=== PATIENT | male | born 1960 | race Caucasian/White ===

== ENCOUNTER 2016-12-18 16:29 | Emergency (ER) | payer OTHER ==
[~2016-12-18] VITALS: Ht 177.8 cm; Wt 113.6 kg
[~2016-12-18 16:29] MED LIST: AUGMENTIN875 MG PO; CLINDAMYCIN HC300 MG PO; FLEXERIL10 MG PO; GLUCOTROL5 MG PO; LISINOPRIL5 MG PO; METFORMIN HCL500 M1 PO; METFORMIN HCL500 M4 PO; ONE TOUCH VERI1 EACH MC; PERCOCET 5/31 TABLET PO
[2016-12-18] MEDS ORDERED: DILAUDID4 MG PO (19:37)
[2016-12-18 20:25] VITALS: BP 120/85
== END 2016-12-18 23:05 | disposition home or self-care (01) ==
LOC: EME 16:29
DX: M54.9 Dorsalgia, unspecified (principal); S22.009S Unspecified fracture of unspecified thoracic vertebra, sequela; I10 Essential (primary) hypertension; E11.40 Type 2 diabetes mellitus with diabetic neuropathy, unspecified
CPT/HCPCS: 72070; 99281; 99284; J2270

== ENCOUNTER 2016-12-21 14:26 | Inpatient (IN) | payer OTHER ==
[~2016-12-21] VITALS: Ht 177.8 cm; Wt 106.9 kg
[~2016-12-21 14:26] MED LIST changes: +DILAUDID4 MG PO
[2016-12-21 15:10] LABS: HEMATOCRIT 27.7 % (38.0-50.0); MCH 24.2 PG (29.0-34.0); MCHC 31.4 G/DL (30.0-36.0); MCV 76.9 FL (86-99); MEAN PLAT.VOLUME 8.6 uM^3 (9.0-12.4); PLATELET COUNT 392 K/uL (156-360); RBC DIS.WIDTH-CV 14.6 % (11.8-14.6); RBC DIS.WIDTH-SD 40.1 % (39-53); WHITE BLOOD COUNT 9.8 K/uL (4.1-10.2)
[2016-12-21 15:17] LABS: CHLORIDE 106 mEq/L (99-109); POTASSIUM 3.7 mEq/L (3.7-5.4); SODIUM 137 mEq/L (136-147)
[2016-12-21 15:19] LABS: GLUCOSE 117 mg/dL (70-99)
[2016-12-21 15:21] LABS: ANION GAP 10 MEQ/L (2-14)
[2016-12-21 15:23] LABS: GFR ESTIMATE (CALCULATED) > 59 mL/min/
[2016-12-21 15:24] LABS: UREA NITROGEN (BUN) 20 mg/dL (9-23)
[2016-12-21 15:32] LABS: TROP-I INTERPRETATION NEGATIVE; TROPONIN-I < 0.01 ng/mL (0.0-0.30)
[2016-12-21 16:25] LABS: ADD MIUA? YES; BILIRUBIN NEGATIVE; BLOOD NEGATIVE; COLOR YELLOW ((YELLOW)); GLUCOSE (STRIP) NEGATIVE; KETONES NEGATIVE; LEUKOCYTES SMALL; NITRITE NEGATIVE; PROTEIN (STRIP) 30; UROBILINOGEN 0.2 MG/DL (0.2-1.0)
[2016-12-21 16:51] LABS: BACTERIA 2+ /HPF; EPITHELIAL CELLS 1+ /HPF; MUCUS NONE SEEN /LPF; RED BLOOD CELLS 0-5 /HPF (0-5); UCUL ADDED? YES; WHITE BLOOD CELLS 15-20 /HPF (0-5)
[2016-12-21] MEDS ORDERED: LISINOPRIL10 MG PO (17:56)
[2016-12-21] MEDS ORDERED: PERCOCET 5/31 TABLET PO (17:57)
[2016-12-21] MEDS ORDERED: LITE COAT ASPI325 M1 PO (17:57)
[2016-12-21] MEDS ORDERED: HUMALOG100 UNIT/1 SC (17:57)
[2016-12-21] MEDS ORDERED: LANTUS 3 M100 UNITS1 SC (17:57)
[2016-12-21] MEDS ORDERED: DOXYCYCLINE HY100 MG PO (17:57)
[2016-12-21 20:32] VITALS: BP 141/70
[2016-12-21 21:11] LABS: POINT-OF-CARE METER ID UU14188577
[2016-12-21 23:12] VITALS: BP 131/62
[2016-12-21 23:54] LABS: METH RESISTANT S AUREUS PCR NEGATIVE (NEGATIVE)
[2016-12-21 23:57] LABS: PROBE CHECK PASS; SPECIMEN PROCESSING CONTROL PASS
[2016-12-22 03:56] VITALS: BP 121/69
[2016-12-22 05:03] LABS: HEMATOCRIT 26.2 % (38.0-50.0); MCH 23.9 PG (29.0-34.0); MCHC 30.5 G/DL (30.0-36.0); MCV 78.2 FL (86-99); MEAN PLAT.VOLUME 9.1 uM^3 (9.0-12.4); PLATELET COUNT 374 K/uL (156-360); RBC DIS.WIDTH-CV 15.1 % (11.8-14.6); RBC DIS.WIDTH-SD 41.8 % (39-53); RED BLOOD COUNT 3.35 M/uL (4.00-5.50); WHITE BLOOD COUNT 10.6 K/uL (4.1-10.2)
[2016-12-22 05:20] LABS: CHLORIDE 105 mEq/L (99-109); POTASSIUM 3.9 mEq/L (3.7-5.4); SODIUM 136 mEq/L (136-147)
[2016-12-22 05:22] LABS: GLUCOSE 88 mg/dL (70-99)
[2016-12-22 05:23] LABS: ANION GAP 8 MEQ/L (2-14)
[2016-12-22 05:26] LABS: GFR ESTIMATE (CALCULATED) > 59 mL/min/; UREA NITROGEN (BUN) 21 mg/dL (9-23)
[2016-12-22 06:28] LABS: POINT-OF-CARE METER ID UU14188577
[2016-12-22 06:52] LABS: IRON 28 MCG/DL (35-150)
[2016-12-22 08:41] VITALS: BP 144/70
[2016-12-22 10:42] VITALS: BP 135/94
[2016-12-22 14:08] LABS: POINT-OF-CARE METER ID UU14149397
[2016-12-22 17:55] LABS: POINT-OF-CARE METER ID UU14149397
[2016-12-22 17:57] VITALS: BP 111/64
[2016-12-22 20:00] VITALS: BP 107/59
[2016-12-22 22:16] LABS: POINT-OF-CARE METER ID UU14188577
[2016-12-23 00:07] VITALS: BP 128/76
[2016-12-23 03:57] VITALS: BP 153/77
[2016-12-23 04:50] LABS: BASOPHIL COUNT 0.1 K/uL (0-0.1); EOSINOPHIL (%) 3.3 % (0-5); EOSINOPHIL COUNT 0.3 K/uL (0-0.3); HEMATOCRIT 26.6 % (38.0-50.0); IMMATURE GRANULOCYTE (%) 0.4 % (0.0-0.7); INSTRUMENT ABS NEUTROPHIL CT 5.5 K/uL; LYMPHOCYTE COUNT 3.1 K/uL (1.0-2.8); MCHC 30.5 G/DL (30.0-36.0); MCV 78.9 FL (86-99); MEAN PLAT.VOLUME 9.2 uM^3 (9.0-12.4); MONOCYTE (%) 9.2 % (3-12); MONOCYTE COUNT 0.9 K/uL (0-0.8); NEUTROPHIL COUNT 5.5 K/uL (1.8-6.4); PLATELET COUNT 350 K/uL (156-360); RBC DIS.WIDTH-CV 15.4 % (11.8-14.6); RBC DIS.WIDTH-SD 43.6 % (39-53); RED BLOOD COUNT 3.37 M/uL (4.00-5.50); WHITE BLOOD COUNT 9.9 K/uL (4.1-10.2)
[2016-12-23 05:19] LABS: CHLORIDE 106 mEq/L (99-109); SODIUM 137 mEq/L (136-147)
[2016-12-23 05:21] LABS: GLUCOSE 107 mg/dL (70-99)
[2016-12-23 05:23] LABS: ANION GAP 7 MEQ/L (2-14); TOTAL BILIRUBIN 0.2 mg/dL (0.0-1.0)
[2016-12-23 05:25] LABS: ALKALINE PHOSPHATASE 57 IU/L (3-129); GFR ESTIMATE (CALCULATED) > 59 mL/min/
[2016-12-23 05:26] LABS: UREA NITROGEN (BUN) 19 mg/dL (9-23)
[2016-12-23 07:57] VITALS: BP 142/79
[2016-12-23 11:26] LABS: POINT-OF-CARE METER ID UU14188577
[2016-12-23 11:49] VITALS: BP 98/61
[2016-12-23 15:00] VITALS: BP 110/57
[2016-12-23 16:23] LABS: POINT-OF-CARE METER ID UU14188577
[2016-12-23 19:35] VITALS: BP 134/70
[2016-12-24] VITALS (7 sets, daily range): BP systolic 108–152; BP diastolic 59–79
[2016-12-24 05:48] LABS: HEMATOCRIT 27.3 % (38.0-50.0); MCH 24.1 PG (29.0-34.0); MCHC 30.4 G/DL (30.0-36.0); MCV 79.4 FL (86-99); MEAN PLAT.VOLUME 9.2 uM^3 (9.0-12.4); PLATELET COUNT 336 K/uL (156-360); RBC DIS.WIDTH-CV 15.5 % (11.8-14.6); RBC DIS.WIDTH-SD 43.9 % (39-53); RED BLOOD COUNT 3.44 M/uL (4.00-5.50); WHITE BLOOD COUNT 9.7 K/uL (4.1-10.2)
[2016-12-24 06:13] LABS: ANION GAP 5 MEQ/L (2-14); CHLORIDE 102 MEQ/L (99-109); GFR ESTIMATE (CALCULATED) > 59 mL/min/; GLUCOSE 97 mg/dL (70-99); SAMPLE HEMOLYSIS CHECK 0; SAMPLE ICTERIC CHECK 0; SAMPLE LIPEMIA CHECK 0; SODIUM 134 MEQ/L (136-147); UREA NITROGEN (BUN) 24 mg/dL (9-23)
[2016-12-24 06:38] LABS: POINT-OF-CARE METER ID UU14188577
[2016-12-24 11:30] LABS: POINT-OF-CARE METER ID UU14188577
[2016-12-25 05:34] VITALS: BP 121/76
[2016-12-25 06:25] LABS: POINT-OF-CARE METER ID UU14188577
[2016-12-25 07:21] VITALS: BP 131/75
[2016-12-25 09:01] LABS: MCH 24.3 PG (29.0-34.0); MCHC 30.7 G/DL (30.0-36.0); MCV 79.2 FL (86-99); MEAN PLAT.VOLUME 8.9 uM^3 (9.0-12.4); PLATELET COUNT 354 K/uL (156-360); RBC DIS.WIDTH-CV 15.5 % (11.8-14.6); RBC DIS.WIDTH-SD 43.9 % (39-53); RED BLOOD COUNT 3.66 M/uL (4.00-5.50); WHITE BLOOD COUNT 7.9 K/uL (4.1-10.2)
[2016-12-25 11:31] VITALS: BP 129/68
[2016-12-25 16:09] VITALS: BP 111/70
[2016-12-25 20:29] VITALS: BP 110/60
[2016-12-25 21:33] LABS: POINT-OF-CARE METER ID UU14188577
[2016-12-25 23:51] VITALS: BP 105/55
[2016-12-26 05:25] LABS: HEMATOCRIT 28.7 % (38.0-50.0); MCH 24.3 PG (29.0-34.0); MCHC 30.3 G/DL (30.0-36.0); MCV 80.2 FL (86-99); MEAN PLAT.VOLUME 9.3 uM^3 (9.0-12.4); PLATELET COUNT 326 K/uL (156-360); RBC DIS.WIDTH-CV 15.8 % (11.8-14.6); RED BLOOD COUNT 3.58 M/uL (4.00-5.50); WHITE BLOOD COUNT 8.8 K/uL (4.1-10.2)
[2016-12-26 05:54] LABS: ANION GAP 7 MEQ/L (2-14); CHLORIDE 103 MEQ/L (99-109); GFR ESTIMATE (CALCULATED) > 59 mL/min/; GLUCOSE 101 mg/dL (70-99); MAGNESIUM 2.1 mg/dl (1.3-2.7); POTASSIUM 4.5 MEQ/L (3.7-5.4); SAMPLE HEMOLYSIS CHECK 0; SAMPLE ICTERIC CHECK 0; SAMPLE LIPEMIA CHECK 0; SODIUM 136 MEQ/L (136-147); UREA NITROGEN (BUN) 34 mg/dL (9-23)
[2016-12-26 08:29] VITALS: BP 118/67
[2016-12-26 11:31] VITALS: BP 77/43
[2016-12-26 15:19] VITALS: BP 119/66
[2016-12-26 23:33] VITALS: BP 115/62
[2016-12-27 05:58] LABS: BASOPHIL COUNT 0.1 K/uL (0-0.1); EOSINOPHIL (%) 5.1 % (0-5); EOSINOPHIL COUNT 0.5 K/uL (0-0.3); HEMATOCRIT 27.8 % (38.0-50.0); IMMATURE GRANULOCYTE (%) 0.4 % (0.0-0.7); INSTRUMENT ABS NEUTROPHIL CT 5.4 K/uL; LYMPHOCYTE COUNT 3.3 K/uL (1.0-2.8); MCH 24.8 PG (29.0-34.0); MCHC 30.9 G/DL (30.0-36.0); MCV 80.1 FL (86-99); MEAN PLAT.VOLUME 9.4 uM^3 (9.0-12.4); MONOCYTE (%) 7.5 % (3-12); MONOCYTE COUNT 0.8 K/uL (0-0.8); NEUTROPHIL (%) 53.6 % (45-76); NEUTROPHIL COUNT 5.4 K/uL (1.8-6.4); PLATELET COUNT 314 K/uL (156-360); RBC DIS.WIDTH-CV 16.2 % (11.8-14.6); RBC DIS.WIDTH-SD 46.2 % (39-53); RED BLOOD COUNT 3.47 M/uL (4.00-5.50)
[2016-12-27 06:35] LABS: ALKALINE PHOSPHATASE 56 IU/L (3-129); ANION GAP 8 MEQ/L (2-14); CHLORIDE 103 MEQ/L (99-109); GFR ESTIMATE (CALCULATED) > 59 mL/min/; GLUCOSE 114 mg/dL (70-99); POTASSIUM 4.8 MEQ/L (3.7-5.4); SAMPLE HEMOLYSIS CHECK 0; SAMPLE ICTERIC CHECK 0; SAMPLE LIPEMIA CHECK 0; SODIUM 136 MEQ/L (136-147); TOTAL BILIRUBIN 0.2 MG/DL (0.0-1.0); UREA NITROGEN (BUN) 51 mg/dL (9-23)
[2016-12-27 08:23] VITALS: BP 105/55
[2016-12-27 12:23] LABS: POINT-OF-CARE METER ID UU14149397
[2016-12-27] MEDS ORDERED: HEPARIN SO5000 UNITS SC (12:23)
[2016-12-27] MEDS ORDERED: FERROUS SULFAT325 MG PO (12:23)
[2016-12-27] MEDS ORDERED: BISACODYL5 MG PO (12:24)
[2016-12-27] MEDS ORDERED: GABAPENTIN300 MG PO (12:24)
[2016-12-27] MEDS ORDERED: DOCUSATE SODIU100 MG PO (12:24)
[2016-12-27] MEDS ORDERED: CYANOCOBALAM1000 MCG PO (12:24)
[2016-12-27] MEDS ORDERED: OXYCODONE-APAP1 EACH PO (12:25)
[2016-12-27] MEDS ORDERED: MORPHINE SULFAT15 M1 PO (12:25)
[2016-12-27] MEDS ORDERED: CYCLOBENZAPRINE5 MG PO (12:25)
[2016-12-27] MEDS ORDERED: VANCOMYCIN1 GM/150 M IV (12:29)
[2016-12-27 15:01] VITALS: BP 113/65
[2016-12-27 16:09] VITALS: BP 110/68
[2016-12-27 19:41] VITALS: BP 121/72
[2016-12-27 21:37] LABS: POINT-OF-CARE METER ID UU14149397
[2016-12-28 00:17] VITALS: BP 127/73
[2016-12-28 06:27] LABS: BASOPHIL COUNT 0.1 K/uL (0-0.1); EOSINOPHIL (%) 5.3 % (0-5); EOSINOPHIL COUNT 0.5 K/uL (0-0.3); HEMATOCRIT 28.5 % (38.0-50.0); IMMATURE GRANULOCYTE (%) 0.3 % (0.0-0.7); INSTRUMENT ABS NEUTROPHIL CT 4.4 K/uL; LYMPHOCYTE COUNT 3.4 K/uL (1.0-2.8); MCH 24.9 PG (29.0-34.0); MCHC 30.5 G/DL (30.0-36.0); MCV 81.7 FL (86-99); MONOCYTE (%) 7.1 % (3-12); MONOCYTE COUNT 0.6 K/uL (0-0.8); NEUTROPHIL (%) 48.9 % (45-76); NEUTROPHIL COUNT 4.4 K/uL (1.8-6.4); PLATELET COUNT 323 K/uL (156-360); RBC DIS.WIDTH-CV 16.4 % (11.8-14.6); RBC DIS.WIDTH-SD 48.5 % (39-53); RED BLOOD COUNT 3.49 M/uL (4.00-5.50); WHITE BLOOD COUNT 8.9 K/uL (4.1-10.2)
[2016-12-28 07:02] LABS: POINT-OF-CARE METER ID UU14149397
[2016-12-28 07:08] LABS: ALKALINE PHOSPHATASE 56 IU/L (3-129); ANION GAP 5 MEQ/L (2-14); CHLORIDE 101 MEQ/L (99-109); GFR ESTIMATE (CALCULATED) > 59 mL/min/; GLUCOSE 88 mg/dL (70-99); SAMPLE HEMOLYSIS CHECK 0; SAMPLE ICTERIC CHECK 0; SAMPLE LIPEMIA CHECK 0; SODIUM 134 MEQ/L (136-147); TOTAL BILIRUBIN 0.2 MG/DL (0.0-1.0); UREA NITROGEN (BUN) 45 mg/dL (9-23); VANCOMYCIN, TROUGH 13.1 MCG/ML (10-20)
[2016-12-28 12:00] LABS: POINT-OF-CARE METER ID UU14149397
== END 2016-12-28 14:39 | DRG 540 ==
LOC: EME 14:26 → EDOF 18:48 → 3EAST 18:48
PROVIDERS: Emergency Medicine; Hospitalist; Internal Medicine
DX: M46.34 Infection of intervertebral disc (pyogenic), thoracic region (principal); E11.42 Type 2 diabetes mellitus with diabetic polyneuropathy; E11.65 Type 2 diabetes mellitus with hyperglycemia; E11.621 Type 2 diabetes mellitus with foot ulcer; E66.01 Morbid (severe) obesity due to excess calories; L03.116 Cellulitis of left lower limb; M46.24 Osteomyelitis of vertebra, thoracic region; N39.0 Urinary tract infection, site not specified; Z86.14 Personal history of Methicillin resistant Staphylococcus aureus infection; D50.9 Iron deficiency anemia, unspecified; E11.610 Type 2 diabetes mellitus with diabetic neuropathic arthropathy; L97.421 Non-pressure chronic ulcer of left heel and midfoot limited to breakdown of skin; L97.521 Non-pressure chronic ulcer of other part of left foot limited to breakdown of skin; Z79.4 Long term (current) use of insulin; M54.14 Radiculopathy, thoracic region; I10 Essential (primary) hypertension; G89.29 Other chronic pain; M54.9 Dorsalgia, unspecified; B95.62 Methicillin resistant Staphylococcus aureus infection as the cause of diseases classified elsewhere; E78.5 Hyperlipidemia, unspecified; D47.3 Essential (hemorrhagic) thrombocythemia; L02.612 Cutaneous abscess of left foot; S22.079D Unspecified fracture of T9-T10 vertebra, subsequent encounter for fracture with routine healing; W19.XXXD Unspecified fall, subsequent encounter; R15.9 Full incontinence of feces; G95.29 Other cord compression; Z87.891 Personal history of nicotine dependence; Z99.3 Dependence on wheelchair; M86.672 Other chronic osteomyelitis, left ankle and foot; E11.69 Type 2 diabetes mellitus with other specified complication; Z68.33 Body mass index [BMI] 33.0-33.9, adult; Z79.2 Long term (current) use of antibiotics
CPT/HCPCS: 72128; 72157; 76937; 80048; 80053; 80202; 81003; 82272; 82565; 82607; 82948; 83540; 83735; 84466; 84484; 85025; 85027; 85651; 86140; 87040; 87086; 87641; 93005; 93306; 93971; 97530 GP; 99281; 99285; A6260; G0378; J0696; J1170; J1644; J1815; J2270; J2405; J3370; J7030; J7050

== ENCOUNTER 2017-03-19 10:42 | Emergency (ER) | payer OTHER ==
[~2017-03-19] VITALS: Ht 180.3 cm; Wt 128.1 kg
[~2017-03-19 10:42] MED LIST changes: +BISACODYL5 MG PO; +CYANOCOBALAM1000 MCG PO; +CYCLOBENZAPRINE5 MG PO; +DOCUSATE SODIU100 MG PO; +DOXYCYCLINE HY100 MG PO; +FERROUS SULFAT325 MG PO; +GABAPENTIN300 MG PO; +HEPARIN SO5000 UNITS SC; +HUMALOG100 UNIT/1 SC; +LANTUS 3 M100 UNITS1 SC; +LISINOPRIL10 MG PO; +LITE COAT ASPI325 M1 PO; +MORPHINE SULFAT15 M1 PO; +OXYCODONE-APAP1 EACH PO; +VANCOMYCIN1 GM/150 M IV
[2017-03-19 13:49] VITALS: BP 127/72
== END 2017-03-19 13:53 | disposition home or self-care (01) ==
LOC: EME 10:42
DX: M25.561 Pain in right knee (principal); M25.511 Pain in right shoulder; G89.29 Other chronic pain; I10 Essential (primary) hypertension; E11.9 Type 2 diabetes mellitus without complications; Z79.4 Long term (current) use of insulin; Z79.82 Long term (current) use of aspirin; Z86.14 Personal history of Methicillin resistant Staphylococcus aureus infection
CPT/HCPCS: 73030; 73564; 99281; 99284

== ENCOUNTER 2017-04-07 22:07 | Inpatient (IN) | payer OTHER ==
[~2017-04-07] VITALS: Ht 180.3 cm; Wt 128.1 kg
[~2017-04-07 22:07] MED LIST changes: -HUMALOG100 UNIT/1 SC; +HUMALOG100 UNIT/2 SC
[2017-04-07 23:19] LABS: BASOPHIL COUNT 0.1 K/uL (0-0.1); EOSINOPHIL (%) 1.4 % (0-5); EOSINOPHIL COUNT 0.2 K/uL (0-0.3); HEMATOCRIT 34.5 % (38.0-50.0); IMMATURE GRANULOCYTE (%) 0.4 % (0.0-0.7); IMMATURE GRANULOCYTE COUNT 0.1 K/uL; INSTRUMENT ABS NEUTROPHIL CT 8.9 K/uL; LYMPHOCYTE COUNT 2.6 K/uL (1.0-2.8); MCH 29.1 PG (29.0-34.0); MCHC 32.5 G/DL (30.0-36.0); MCV 89.6 FL (86-99); MEAN PLAT.VOLUME 9.6 uM^3 (9.0-12.4); MONOCYTE (%) 11.1 % (3-12); MONOCYTE COUNT 1.5 K/uL (0-0.8); NEUTROPHIL (%) 67.1 % (45-76); NEUTROPHIL COUNT 8.9 K/uL (1.8-6.4); PLATELET COUNT 185 K/uL (156-360); RBC DIS.WIDTH-CV 12.4 % (11.8-14.6); RED BLOOD COUNT 3.85 M/uL (4.00-5.50); WHITE BLOOD COUNT 13.2 K/uL (4.1-10.2)
[2017-04-07 23:28] LABS: CHLORIDE 107 mEq/L (99-109); POTASSIUM 4.8 mEq/L (3.7-5.4); SODIUM 139 mEq/L (136-147)
[2017-04-07 23:29] LABS: MAGNESIUM 1.8 mg/dL (1.3-2.7)
[2017-04-07 23:30] LABS: GLUCOSE 160 mg/dL (70-99)
[2017-04-07 23:31] LABS: ANION GAP 10 MEQ/L (2-14)
[2017-04-07 23:32] LABS: TOTAL BILIRUBIN 0.3 mg/dL (0.0-1.0)
[2017-04-07 23:34] LABS: ALKALINE PHOSPHATASE 60 IU/L (3-129); GFR ESTIMATE (CALCULATED) > 59 mL/min/
[2017-04-07 23:35] LABS: UREA NITROGEN (BUN) 31 mg/dL (9-23)
[2017-04-07] MEDS ORDERED: IRON325 M1 PO (23:59)
[2017-04-08] MEDS ORDERED: ONE-A-DAY ESSE1 EAC1 PO
[2017-04-08] MEDS ORDERED: SENNA PLUS TAB1 EACH PO (00:01)
[2017-04-08] MEDS ORDERED: KEFLEX500 MG PO (00:02)
[2017-04-08] MEDS ORDERED: BENADRYL25 MG PO (00:03)
[2017-04-08] MEDS ORDERED: DULCOLAX5 MG PO (00:03)
[2017-04-08] MEDS ORDERED: GLUCOSE GEL38 GM PO (00:04)
[2017-04-08] MEDS ORDERED: TYLENOL REGULA325 MG PO (00:05)
[2017-04-08] MEDS ORDERED: PERCOCET 10/1 TABLET PO (00:05)
[2017-04-08 04:17] VITALS: BP 117/58
[2017-04-08 06:34] LABS: HEMATOCRIT 33.3 % (38.0-50.0); MCH 28.8 PG (29.0-34.0); MCHC 31.5 G/DL (30.0-36.0); MCV 91.5 FL (86-99); MEAN PLAT.VOLUME 9.8 uM^3 (9.0-12.4); PLATELET COUNT 151 K/uL (156-360); RBC DIS.WIDTH-CV 12.7 % (11.8-14.6); RBC DIS.WIDTH-SD 42.4 % (39-53); RED BLOOD COUNT 3.64 M/uL (4.00-5.50); WHITE BLOOD COUNT 11.8 K/uL (4.1-10.2)
[2017-04-08 06:58] LABS: ALKALINE PHOSPHATASE 50 IU/L (3-129); ANION GAP 6 MEQ/L (2-14); CHLORIDE 109 MEQ/L (99-109); GFR ESTIMATE (CALCULATED) > 59 mL/min/; GLUCOSE 124 mg/dL (70-99); POTASSIUM 4.8 MEQ/L (3.7-5.4); SAMPLE HEMOLYSIS CHECK 0; SAMPLE ICTERIC CHECK 0; SAMPLE LIPEMIA CHECK 0; SODIUM 138 MEQ/L (136-147); TOTAL BILIRUBIN 0.4 MG/DL (0.0-1.0); UREA NITROGEN (BUN) 33 mg/dL (9-23)
[2017-04-08 07:25] LABS: POINT-OF-CARE METER ID UU14117124
[2017-04-08 07:39] LABS: ERTH.SED.RATE 49 MM/HR (0-20)
[2017-04-08 08:10] VITALS: BP 120/74
[2017-04-08 08:43] LABS: METH RESISTANT S AUREUS PCR NEGATIVE (NEGATIVE)
[2017-04-08 08:46] LABS: PROBE CHECK PASS; SPECIMEN PROCESSING CONTROL PASS
[2017-04-08 10:56] VITALS: BP 139/68
[2017-04-08 11:23] LABS: POINT-OF-CARE METER ID UU14117124
[2017-04-08 16:20] VITALS: BP 117/57
[2017-04-08 19:16] VITALS: BP 134/71
[2017-04-08 21:26] LABS: POINT-OF-CARE METER ID UU14208753
[2017-04-08 23:35] VITALS: BP 148/81
[2017-04-09 03:32] VITALS: BP 144/86
[2017-04-09 06:43] LABS: BASOPHIL COUNT 0.1 K/uL (0-0.1); EOSINOPHIL COUNT 0.2 K/uL (0-0.3); IMMATURE GRANULOCYTE (%) 0.4 % (0.0-0.7); LYMPHOCYTE COUNT 2.1 K/uL (1.0-2.8); MCH 28.7 PG (29.0-34.0); MCHC 32.4 G/DL (30.0-36.0); MCV 88.8 FL (86-99); MEAN PLAT.VOLUME 10.1 uM^3 (9.0-12.4); MONOCYTE (%) 10.6 % (3-12); MONOCYTE COUNT 1.1 K/uL (0-0.8); NEUTROPHIL (%) 66.6 % (45-76); PLATELET COUNT 181 K/uL (156-360); RBC DIS.WIDTH-CV 12.1 % (11.8-14.6); RBC DIS.WIDTH-SD 39.6 % (39-53); RED BLOOD COUNT 3.83 M/uL (4.00-5.50); WHITE BLOOD COUNT 10.5 K/uL (4.1-10.2)
[2017-04-09 07:08] VITALS: BP 139/71
[2017-04-09 07:13] LABS: ANION GAP 10 MEQ/L (2-14); CHLORIDE 105 MEQ/L (99-109); GFR ESTIMATE (CALCULATED) > 59 mL/min/; GLUCOSE 90 mg/dL (70-99); POTASSIUM 4.7 MEQ/L (3.7-5.4); SAMPLE HEMOLYSIS CHECK 0; SAMPLE ICTERIC CHECK 0; SAMPLE LIPEMIA CHECK 0; SODIUM 138 MEQ/L (136-147); UREA NITROGEN (BUN) 22 mg/dL (9-23)
[2017-04-09 11:20] VITALS: BP 156/75
[2017-04-09 15:16] VITALS: BP 138/71
[2017-04-10 00:01] VITALS: BP 151/75
[2017-04-10 06:30] LABS: POINT-OF-CARE METER ID UU14188577
[2017-04-10 07:20] VITALS: BP 146/74
[2017-04-10] MEDS ORDERED: PERCOCET 10/1 TABLET PO (10:38)
[2017-04-10] MEDS ORDERED: MORPHINE SULFAT15 M1 PO (10:38)
[2017-04-10 10:58] LABS: POINT-OF-CARE METER ID UU14188577
[2017-04-10 11:15] VITALS: BP 134/69
[2017-04-10 15:16] VITALS: BP 136/68
[2017-04-10] MEDS ORDERED: VANCOMYCIN1 GM/150 M IV (15:21)
[2017-04-10 16:09] LABS: POINT-OF-CARE METER ID UU14117124
== END 2017-04-10 17:05 | DRG 539 ==
LOC: EME → EDBD 22:07 → EDOF 04-08 01:42 → 3EAST 04-08 01:42 → ENRESERV 04-08 01:47 → 3EAST 04-08 03:24
PROVIDERS: Emergency Medicine; Internal Medicine
DX: M86.10 Other acute osteomyelitis, unspecified site (principal); J69.0 Pneumonitis due to inhalation of food and vomit; L03.116 Cellulitis of left lower limb; N20.0 Calculus of kidney; M46.24 Osteomyelitis of vertebra, thoracic region; M46.40 Discitis, unspecified, site unspecified; G89.29 Other chronic pain; E78.5 Hyperlipidemia, unspecified; E11.65 Type 2 diabetes mellitus with hyperglycemia; I10 Essential (primary) hypertension; E11.610 Type 2 diabetes mellitus with diabetic neuropathic arthropathy; E11.69 Type 2 diabetes mellitus with other specified complication; M21.969 Unspecified acquired deformity of unspecified lower leg; B95.62 Methicillin resistant Staphylococcus aureus infection as the cause of diseases classified elsewhere; Z86.14 Personal history of Methicillin resistant Staphylococcus aureus infection; Z83.3 Family history of diabetes mellitus; Z79.4 Long term (current) use of insulin
CPT/HCPCS: 71020; 72128; 73630; 73700; 76937; 80048; 80053; 80202; 81003; 82948; 83605; 83735; 85025; 85027; 85651; 86140; 87040; 87641; 99281; 99285; J1644; J1815; J2543; J3370; J7030; J7050

== ENCOUNTER 2017-05-17 09:19 | Inpatient (IN) | payer OTHER ==
[~2017-05-17] VITALS: Ht 170.2 cm; Wt 138.7 kg
[~2017-05-17 09:19] MED LIST changes: +BENADRYL25 MG PO; +DULCOLAX10 MG PR; +GLUCOSE GEL38 GM PO; +IRON325 M1 PO; +KEFLEX500 MG PO; +ONE-A-DAY ESSE1 EAC1 PO; +PERCOCET 10/1 TABLET PO; +SENNA PLUS TAB1 EACH PO; +TYLENOL REGULA325 MG PO
[2017-05-17 10:10] LABS: EOSINOPHIL (%) 0.3 % (0-5); IMMATURE GRANULOCYTE (%) 0.5 % (0.0-0.7); IMMATURE GRANULOCYTE COUNT 0.1 K/uL; INSTRUMENT ABS NEUTROPHIL CT 11.6 K/uL; LYMPHOCYTE COUNT 0.4 K/uL (1.0-2.8); MCH 28.9 PG (29.0-34.0); MCHC 32.1 G/DL (30.0-36.0); MEAN PLAT.VOLUME 9.7 uM^3 (9.0-12.4); MONOCYTE COUNT 0.6 K/uL (0-0.8); NEUTROPHIL (%) 91.2 % (45-76); NEUTROPHIL COUNT 11.6 K/uL (1.8-6.4); PLATELET COUNT 176 K/uL (156-360); RBC DIS.WIDTH-CV 12.9 % (11.8-14.6); RBC DIS.WIDTH-SD 42.5 % (39-53); RED BLOOD COUNT 4.22 M/uL (4.00-5.50); WHITE BLOOD COUNT 12.7 K/uL (4.1-10.2)
[2017-05-17 10:18] LABS: CHLORIDE 110 mEq/L (99-109); SODIUM 136 mEq/L (136-147)
[2017-05-17 10:21] LABS: GLUCOSE 155 mg/dL (70-99)
[2017-05-17 10:22] LABS: ANION GAP 7 MEQ/L (2-14)
[2017-05-17 10:23] LABS: POTASSIUM 6.7 mEq/L (3.7-5.4); TOTAL BILIRUBIN 0.5 mg/dL (0.0-1.0)
[2017-05-17 10:24] LABS: ALKALINE PHOSPHATASE 79 IU/L (3-129); GFR ESTIMATE (CALCULATED) 37 mL/min/
[2017-05-17 10:25] LABS: UREA NITROGEN (BUN) 51 mg/dL (9-23)
[2017-05-17] MEDS ORDERED: GLUCOSAMINE CH1 EAC6 PO (11:52)
[2017-05-17] MEDS ORDERED: MIRALAX17 GM PO (11:55)
[2017-05-17] MEDS ORDERED: PROBIOTIC250 MG PO (12:00)
[2017-05-17] MEDS ORDERED: FLEET ENEMA-AD118 ML PR (12:08)
[2017-05-17] MEDS ORDERED: BISACODYL5 MG PO (12:10)
[2017-05-17] MEDS ORDERED: GLUCOSE GEL38 GM PO (12:12)
[2017-05-17] MEDS ORDERED: KALEXATE15 GM PO (12:14)
[2017-05-17 12:40] LABS: VANCOMYCIN, TROUGH 16.2 MCG/ML (10-20)
[2017-05-17 13:42] LABS: ADD MIUA? YES; BILIRUBIN NEGATIVE; BLOOD MODERATE; COLOR YELLOW ((YELLOW)); GLUCOSE (STRIP) NEGATIVE; KETONES NEGATIVE; LEUKOCYTES MODERATE; NITRITE NEGATIVE; PROTEIN (STRIP) 30; SPECIFIC GRAVITY 1.017 (1.000-1.030); UROBILINOGEN 0.2 MG/DL (0.2-1.0)
[2017-05-17 13:45] LABS: BACTERIA RARE /HPF; EPITHELIAL CELLS NONE SEEN /HPF; MUCUS NONE SEEN /LPF; UCUL ADDED? YES; WHITE BLOOD CELLS TNTC /HPF (0-5)
[2017-05-17 15:34] VITALS: BP 190/78
[2017-05-17 16:15] LABS: POINT-OF-CARE METER ID UU13113698
[2017-05-17 17:18] LABS: ANION GAP 7 MEQ/L (2-14); CHLORIDE 111 MEQ/L (99-109); GFR ESTIMATE (CALCULATED) 42 mL/min/; GLUCOSE 147 mg/dL (70-99); POTASSIUM 5.4 MEQ/L (3.7-5.4); SAMPLE HEMOLYSIS CHECK 0; SAMPLE ICTERIC CHECK 0; SAMPLE LIPEMIA CHECK 0; SODIUM 137 MEQ/L (136-147); UREA NITROGEN (BUN) 45 mg/dL (9-23)
[2017-05-17 19:58] VITALS: BP 115/54
[2017-05-17 20:04] LABS: ANION GAP 8 MEQ/L (2-14); CHLORIDE 113 MEQ/L (99-109); POTASSIUM 4.5 MEQ/L (3.7-5.4); SAMPLE HEMOLYSIS CHECK 0; SAMPLE ICTERIC CHECK 0; SAMPLE LIPEMIA CHECK 0; SODIUM 138 MEQ/L (136-147)
[2017-05-17 20:10] LABS: GFR ESTIMATE (CALCULATED) 42 mL/min/; GLUCOSE 141 mg/dL (70-99); UREA NITROGEN (BUN) 45 mg/dL (9-23)
[2017-05-17 20:45] LABS: METH RESISTANT S AUREUS PCR NEGATIVE (NEGATIVE)
[2017-05-17 20:53] LABS: INFLUENZA A VIRAL ANTIGEN NEGATIVE; INFLUENZA B VIRAL ANTIGEN NEGATIVE
[2017-05-17 20:55] LABS: PROBE CHECK PASS; SPECIMEN PROCESSING CONTROL PASS
[2017-05-17 21:15] LABS: POINT-OF-CARE METER ID UU14174216
[2017-05-17 23:35] VITALS: BP 164/77
[2017-05-18] VITALS (7 sets, daily range): BP systolic 120–215; BP diastolic 58–101
[2017-05-18 05:57] LABS: ANION GAP 9 MEQ/L (2-14); CHLORIDE 109 MEQ/L (99-109); GFR ESTIMATE (CALCULATED) 42 mL/min/; GLUCOSE 155 mg/dL (70-99); POTASSIUM 4.5 MEQ/L (3.7-5.4); SAMPLE HEMOLYSIS CHECK 0; SAMPLE ICTERIC CHECK 0; SAMPLE LIPEMIA CHECK 0; SODIUM 137 MEQ/L (136-147); UREA NITROGEN (BUN) 37 mg/dL (9-23)
[2017-05-18] MEDS ORDERED: PERCOCET 10/1 TABLET PO (06:19)
[2017-05-18 07:45] LABS: POINT-OF-CARE METER ID UU14314088
[2017-05-18 11:14] LABS: POINT-OF-CARE METER ID UU13113781
[2017-05-18 16:01] LABS: POINT-OF-CARE METER ID UU13113781
[2017-05-18 20:55] LABS: POINT-OF-CARE METER ID UU14174216; POINT-OF-CARE USER ID ENVMNS
[2017-05-19 00:15] VITALS: BP 180/82
[2017-05-19 05:04] VITALS: BP 140/67
[2017-05-19 06:54] LABS: ALKALINE PHOSPHATASE 51 IU/L (3-129); ANION GAP 8 MEQ/L (2-14); C3 COMPLEMENT 133 MG/DL (58-170); C4 COMPLEMENT 62 MG/DL (10-40); CHLORIDE 107 MEQ/L (99-109); GFR ESTIMATE (CALCULATED) 56 mL/min/; GLUCOSE 128 mg/dL (70-99); POTASSIUM 4.1 MEQ/L (3.7-5.4); SAMPLE HEMOLYSIS CHECK 0; SAMPLE ICTERIC CHECK 0; SAMPLE LIPEMIA CHECK 0; SODIUM 135 MEQ/L (136-147); TOTAL BILIRUBIN 1.1 MG/DL (0.0-1.0); UREA NITROGEN (BUN) 35 mg/dL (9-23)
[2017-05-19 07:02] LABS: ANION GAP 8 MEQ/L (2-14); CHLORIDE 109 MEQ/L (99-109); GFR ESTIMATE (CALCULATED) > 59 mL/min/; GLUCOSE 126 mg/dL (70-99); POTASSIUM 4.2 MEQ/L (3.7-5.4); SAMPLE HEMOLYSIS CHECK 0; SAMPLE ICTERIC CHECK 0; SAMPLE LIPEMIA CHECK 0; SODIUM 137 MEQ/L (136-147); UREA NITROGEN (BUN) 35 mg/dL (9-23)
[2017-05-19 07:10] LABS: EOSINOPHIL (%) 0.3 % (0-5); HEMATOCRIT 32.5 % (38.0-50.0); INSTRUMENT ABS NEUTROPHIL CT 3.3 K/uL; LYMPHOCYTE COUNT 0.3 K/uL (1.0-2.8); MCH 28.1 PG (29.0-34.0); MCHC 31.7 G/DL (30.0-36.0); MCV 88.8 FL (86-99); MONOCYTE (%) 5.7 % (3-12); MONOCYTE COUNT 0.2 K/uL (0-0.8); NEUTROPHIL (%) 84.5 % (45-76); NEUTROPHIL COUNT 3.3 K/uL (1.8-6.4); RBC DIS.WIDTH-CV 13.2 % (11.8-14.6); RED BLOOD COUNT 3.66 M/uL (4.00-5.50); WHITE BLOOD COUNT 3.9 K/uL (4.1-10.2)
[2017-05-19 07:21] LABS: MEAN PLAT.VOLUME 9.8 uM^3 (9.0-12.4); PLAT.SUFFICIENCY DECREASED
[2017-05-19 07:25] LABS: PLATELET COUNT 78 K/uL (156-360)
[2017-05-19 07:27] VITALS: BP 136/63
[2017-05-19 08:05] LABS: POINT-OF-CARE METER ID UU14314088
[2017-05-19 11:17] LABS: POINT-OF-CARE METER ID UU13113781
[2017-05-19 11:45] VITALS: BP 152/74
[2017-05-19 16:12] VITALS: BP 147/71
[2017-05-19 16:43] LABS: POINT-OF-CARE METER ID UU13113781; POINT-OF-CARE USER ID NUTSLF44
[2017-05-19 20:31] VITALS: BP 178/89
[2017-05-19 20:49] LABS: POINT-OF-CARE METER ID UU14314088
[2017-05-20 05:25] VITALS: BP 126/64
[2017-05-20 06:05] LABS: HEMATOCRIT 28.9 % (38.0-50.0); MCHC 31.8 G/DL (30.0-36.0); MCV 87.8 FL (86-99); PLATELET COUNT 76 K/uL (156-360); RBC DIS.WIDTH-CV 13.2 % (11.8-14.6); RBC DIS.WIDTH-SD 42.8 % (39-53); RED BLOOD COUNT 3.29 M/uL (4.00-5.50); WHITE BLOOD COUNT 3.5 K/uL (4.1-10.2)
[2017-05-20 06:08] LABS: ANION GAP 7 MEQ/L (2-14); CHLORIDE 106 MEQ/L (99-109); CHLORIDE 107 MEQ/L (99-109); GFR ESTIMATE (CALCULATED) > 59 mL/min/; GLUCOSE 121 mg/dL (70-99); GLUCOSE 123 mg/dL (70-99); POTASSIUM 4.3 MEQ/L (3.7-5.4); POTASSIUM 4.4 MEQ/L (3.7-5.4); SAMPLE HEMOLYSIS CHECK 0; SAMPLE ICTERIC CHECK 0; SAMPLE LIPEMIA CHECK 0; SODIUM 135 MEQ/L (136-147); SODIUM 137 MEQ/L (136-147); UREA NITROGEN (BUN) 39 mg/dL (9-23)
[2017-05-20 08:10] VITALS: BP 148/86
[2017-05-20 08:15] LABS: POINT-OF-CARE METER ID UU13113781; POINT-OF-CARE USER ID NUTSLF44
[2017-05-20 11:30] LABS: POINT-OF-CARE METER ID UU13113781; POINT-OF-CARE USER ID NUTSLF44
[2017-05-20 12:15] VITALS: BP 116/75
[2017-05-20 16:16] LABS: POINT-OF-CARE METER ID UU13113781
[2017-05-20 16:18] VITALS: BP 153/81
[2017-05-20 19:16] VITALS: BP 136/67
[2017-05-20 21:18] LABS: POINT-OF-CARE METER ID UU13113781
[2017-05-20 23:40] VITALS: BP 125/58
[2017-05-21 03:10] VITALS: BP 162/82
[2017-05-21 05:23] LABS: HEMATOCRIT 29.4 % (38.0-50.0); MCH 28.8 PG (29.0-34.0); MCHC 32.7 G/DL (30.0-36.0); MCV 88.3 FL (86-99); MEAN PLAT.VOLUME 10.9 uM^3 (9.0-12.4); PLATELET COUNT 86 K/uL (156-360); RBC DIS.WIDTH-CV 13.3 % (11.8-14.6); RBC DIS.WIDTH-SD 43.2 % (39-53); RED BLOOD COUNT 3.33 M/uL (4.00-5.50); WHITE BLOOD COUNT 6.1 K/uL (4.1-10.2)
[2017-05-21 05:48] LABS: ANION GAP 7 MEQ/L (2-14); CHLORIDE 103 MEQ/L (99-109); GFR ESTIMATE (CALCULATED) > 59 mL/min/; GLUCOSE 116 mg/dL (70-99); POTASSIUM 4.5 MEQ/L (3.7-5.4); SAMPLE HEMOLYSIS CHECK 0; SAMPLE ICTERIC CHECK 0; SAMPLE LIPEMIA CHECK 0; SODIUM 133 MEQ/L (136-147); UREA NITROGEN (BUN) 35 mg/dL (9-23)
[2017-05-21] MEDS ORDERED: DIFLUCAN200 MG PO (07:41)
[2017-05-21] MEDS ORDERED: BACTRIM,SEPT1 TABLET PO (07:41)
[2017-05-21 08:10] VITALS: BP 189/91
[2017-05-21 08:10] LABS: POINT-OF-CARE METER ID UU14174216; POINT-OF-CARE USER ID NUTSLF44
[2017-05-21 11:31] VITALS: BP 184/89
[2017-05-21 12:37] LABS: POINT-OF-CARE METER ID UU14174216; POINT-OF-CARE USER ID ADMMNS
[2017-05-21 16:26] VITALS: BP 168/62
[2017-05-21 16:30] LABS: POINT-OF-CARE METER ID UU13113781
[2017-05-21 19:03] VITALS: BP 151/71
[2017-05-21 20:58] LABS: POINT-OF-CARE METER ID UU14174216
[2017-05-22 00:27] VITALS: BP 144/67
[2017-05-22 02:53] VITALS: BP 156/79
[2017-05-22 08:05] LABS: POINT-OF-CARE METER ID UU13113698
[2017-05-22 08:30] VITALS: BP 162/68
[2017-05-22 11:10] LABS: POINT-OF-CARE METER ID UU13113698
[2017-05-22 11:48] VITALS: BP 140/70
== END 2017-05-22 15:32 | DRG 314 ==
LOC: EME 09:19 → EDOF 11:44 → 4EAST 11:44 → ENRESERV 11:46 → CANRESERV 11:46 → EDOF 11:54 → ENRESERV 11:59 → 4EAST 15:00 → ENRESERV 05-20 07:45 → CANRESERV 05-20 12:00 → 4EAST 05-22 15:32
PROVIDERS: Emergency Medicine; Hospitalist; Internal Medicine; Internal Medicine Nephrology
DX: T80.219A Unspecified infection due to central venous catheter, initial encounter (principal); B37.7 Candidal sepsis; R65.21 Severe sepsis with septic shock; E87.1 Hypo-osmolality and hyponatremia; E87.2 Acidosis; N17.9 Acute kidney failure, unspecified; E11.22 Type 2 diabetes mellitus with diabetic chronic kidney disease; E11.610 Type 2 diabetes mellitus with diabetic neuropathic arthropathy; E11.40 Type 2 diabetes mellitus with diabetic neuropathy, unspecified; E86.0 Dehydration; B95.62 Methicillin resistant Staphylococcus aureus infection as the cause of diseases classified elsewhere; I12.9 Hypertensive chronic kidney disease with stage 1 through stage 4 chronic kidney disease, or unspecified chronic kidney disease; E87.5 Hyperkalemia; N18.2 Chronic kidney disease, stage 2 (mild); R32 Unspecified urinary incontinence; E83.39 Other disorders of phosphorus metabolism; M14.679 Charcot's joint, unspecified ankle and foot; M46.20 Osteomyelitis of vertebra, site unspecified; B49 Unspecified mycosis; J86.9 Pyothorax without fistula; M25.562 Pain in left knee; D64.9 Anemia, unspecified; G89.29 Other chronic pain; M14.672 Charcot's joint, left ankle and foot; Y84.8 Other medical procedures as the cause of abnormal reaction of the patient, or of later complication, without mention of misadventure at the time of the procedure; E66.01 Morbid (severe) obesity due to excess calories; Z87.440 Personal history of urinary (tract) infections; Z79.2 Long term (current) use of antibiotics; Z68.42 Body mass index [BMI] 45.0-49.9, adult; Z86.14 Personal history of Methicillin resistant Staphylococcus aureus infection; Z82.49 Family history of ischemic heart disease and other diseases of the circulatory system; Z79.4 Long term (current) use of insulin; Z83.3 Family history of diabetes mellitus; Z82.3 Family history of stroke
CPT/HCPCS: 70450; 71010; 80048; 80048 91; 80053; 80069; 80202; 81003; 82948; 83605; 85025; 85027; 85730; 86160; 87040; 87086; 87106; 87149; 87149 59; 87186 90; 87502; 87641; 93005; 94640; 94640 76; 94760; 99202; 99281; 99285; J0360; J0692; J1170; J1644; J1815; J2020; J2248; J3370; J7030; J7040; J7050

== ENCOUNTER 2017-07-02 10:28 | Emergency (ER) | payer OTHER ==
[~2017-07-02] VITALS: Ht 180.3 cm; Wt 135.4 kg
[~2017-07-02 10:28] MED LIST changes: +BACTRIM,SEPT1 TABLET PO; +DIFLUCAN200 MG PO; +FLEET ENEMA-AD118 ML PR; +GLUCOSAMINE CH1 EAC6 PO; +KALEXATE15 GM PO; +MIRALAX17 GM PO; +PROBIOTIC250 MG PO
[2017-07-02 10:41] VITALS: BP 170/89
[2017-07-02 11:08] LABS: BASOPHIL COUNT 0.1 K/uL (0-0.1); EOSINOPHIL (%) 1.5 % (0-5); EOSINOPHIL COUNT 0.2 K/uL (0-0.3); HEMATOCRIT 37.6 % (38.0-50.0); IMMATURE GRANULOCYTE COUNT 0.1 K/uL; LYMPHOCYTE COUNT 3.2 K/uL (1.0-2.8); MCV 88.1 FL (86-99); MEAN PLAT.VOLUME 9.8 uM^3 (9.0-12.4); MONOCYTE (%) 6.6 % (3-12); MONOCYTE COUNT 0.8 K/uL (0-0.8); NEUTROPHIL (%) 64.6 % (45-76); PLATELET COUNT 186 K/uL (156-360); RBC DIS.WIDTH-CV 14.5 % (11.8-14.6); RBC DIS.WIDTH-SD 47.1 % (39-53); RED BLOOD COUNT 4.27 M/uL (4.00-5.50); WHITE BLOOD COUNT 12.4 K/uL (4.1-10.2)
[2017-07-02 11:19] LABS: CHLORIDE 105 mEq/L (99-109); POTASSIUM 4.1 mEq/L (3.7-5.4); SODIUM 136 mEq/L (136-147)
[2017-07-02 11:20] LABS: MAGNESIUM 1.9 mg/dL (1.3-2.7)
[2017-07-02 11:22] LABS: GLUCOSE 150 mg/dL (70-99)
[2017-07-02 11:23] LABS: ANION GAP 6 MEQ/L (2-14)
[2017-07-02 11:24] LABS: TOTAL BILIRUBIN 0.3 mg/dL (0.0-1.0)
[2017-07-02 11:25] LABS: SERUM ETHYL ALCOHOL < 10 mg/dL
[2017-07-02 11:26] LABS: ALKALINE PHOSPHATASE 66 IU/L (3-129); GFR ESTIMATE (CALCULATED) > 59 mL/min/
[2017-07-02 11:28] LABS: UREA NITROGEN (BUN) 21 mg/dL (9-23)
[2017-07-02 11:29] LABS: SALICYLATE < 5.0 MG/DL (15-30)
[2017-07-02 13:02] LABS: ADD MIUA? YES; BILIRUBIN NEGATIVE; BLOOD NEGATIVE; COLOR YELLOW ((YELLOW)); GLUCOSE (STRIP) NEGATIVE; KETONES NEGATIVE; LEUKOCYTES SMALL; NITRITE NEGATIVE; PROTEIN (STRIP) 30; SPECIFIC GRAVITY 1.011 (1.000-1.030); UROBILINOGEN 0.2 MG/DL (0.2-1.0)
[2017-07-02 13:05] LABS: BACTERIA NONE SEEN /HPF; EPITHELIAL CELLS RARE /HPF; MUCUS TRACE /LPF; RED BLOOD CELLS 0-5 /HPF (0-5); UCUL ADDED? YES; WHITE BLOOD CELLS 15-20 /HPF (0-5)
[2017-07-02 13:11] LABS: AMPHETAMINE NEGATIVE (500 ng/mL); BARBITURATES NEGATIVE (200 ng/mL); BENZODIAZEPINES NEGATIVE (150 ng/mL); COCAINE NEGATIVE (150 ng/mL); METHADONE NEGATIVE (200 ng/mL); METHAMPHETAMINE NEGATIVE (500 ng/mL); OPIATES (MORPHINE) PRESUMPTIVE POSITIVE (100 ng/mL); PHENCYCLIDINE NEGATIVE (25 ng/mL); THC CANNABINOIDS NEGATIVE (50 ng/mL); TRICYCLIC ANTIDEPRESSANTS NEGATIVE (300 ng/mL)
[2017-07-02 13:12] LABS: ADD MEDTOX COMMENT Y; INTERNAL CONTROLS VALID? YES; OXYCODONE PRESUMPTIVE POSITIVE (100 ng/mL); PROPOXYPHENE NEGATIVE (300 ng/mL)
== END 2017-07-02 14:59 ==
LOC: EME → EDBD 10:28 → EME 10:28
PROVIDERS: Emergency Medicine
DX: F43.20 Adjustment disorder, unspecified (principal); I10 Essential (primary) hypertension; E11.9 Type 2 diabetes mellitus without complications; Z79.4 Long term (current) use of insulin; Z79.82 Long term (current) use of aspirin; E66.9 Obesity, unspecified; Z68.41 Body mass index [BMI] 40.0-44.9, adult
CPT/HCPCS: 80053; 81003; 83735; 84999; 85025; 87086; 90839; 99281; 99285; G0480

== ENCOUNTER 2017-07-04 11:03 | Emergency (ER) | payer OTHER ==
[~2017-07-04] VITALS: Ht 180.3 cm; Wt 139.6 kg
[2017-07-04 13:34] VITALS: BP 129/91
== END 2017-07-04 13:38 ==
LOC: EME 11:03
DX: F43.20 Adjustment disorder, unspecified (principal); F91.9 Conduct disorder, unspecified; Z04.6 Encounter for general psychiatric examination, requested by authority; I10 Essential (primary) hypertension; E11.9 Type 2 diabetes mellitus without complications; Z79.84 Long term (current) use of oral hypoglycemic drugs
CPT/HCPCS: 80053; 81003; 85027; 90837; 99281; 99285; G0480

== ENCOUNTER → 2017-08-16 | Outpatient (CLI) | payer OTHER | LOC: NUC 12:21 | DX: R93.7 Abnormal findings on diagnostic imaging of other parts of musculoskeletal system (principal) | CPT/HCPCS: 78315; 78999; A9503 ==

== ENCOUNTER → 2017-08-23 | Outpatient (CLI) | payer OTHER | LOC: MRI 08:35 → RAD 09:00 | DX: M46.24 Osteomyelitis of vertebra, thoracic region (principal); M46.44 Discitis, unspecified, thoracic region; M51.24 Other intervertebral disc displacement, thoracic region; M48.04 Spinal stenosis, thoracic region; M46.97 Unspecified inflammatory spondylopathy, lumbosacral region | CPT/HCPCS: 72156; 72157; 72158 ==

== ENCOUNTER → 2017-08-28 | Outpatient (CLI) | payer OTHER | LOC: NUC 08:10 | PROC: CP1Z1ZZ Planar Nuclear Medicine Imaging of Musculoskeletal System, All using Technetium 99m (Tc-99m) (ICD-10-PCS; principal; 2017-08-28) | DX: R93.7 Abnormal findings on diagnostic imaging of other parts of musculoskeletal system (principal) | CPT/HCPCS: 78306; A9503 ==

== ENCOUNTER → 2017-09-05 | Outpatient (CLI) | payer OTHER | LOC: NUC 08-29 08:00 | DX: M86.9 Osteomyelitis, unspecified (principal) | CPT/HCPCS: 78806; 78999; A9567 ==